=== PATIENT | male | born 2000 | race Caucasian/White ===

== ENCOUNTER 2019-01-20 16:45 | Emergency (ER) | payer OTHER, BC ==
--- NOTE | 2019-01-20 17:14 | EDM.PDOC ---
ED HPI GENERAL MEDICAL PROBLEM - General Chief Complaint: Upper Extremity Injury/Pain Stated Complaint: HAND INJURED ON THE JOB Time Seen by Provider: 01/20/19 17:00 Source of Information: Reports: Patient, RN, RN Notes Reviewed History Limitations: Reports: No Limitations - History of Present Illness INITIAL COMMENTS - FREE TEXT/NARRATIVE: Patient presents to the ED at [facility] for the evaluation of a crush injury to the right hand. The patient states while he was at work, he was cleaning out a grain auger when the hand was crushed by a door on the auger. No previous injury or trauma to the right hand. The patient denies any numbness, tingling, or paresthesia to the right upper extremity. No previous right hand surgeries. Patient has normal ROM of the right hand. Onset: Today Onset Date: 01/20/19 - Related Data Allergies Allergy/AdvReac Type Severity Reaction Status Date / Time No Known Allergies Allergy Verified 09/22/16 16:28 Home Meds: Home Meds . [No Known Home Meds] 01/20/19 [History] Review of Systems - Review of Systems Review Of Systems: See Below Constitutional: Denies: Chills, Fever Respiratory: Denies: Shortness of Breath, Cough Cardiovascular: Denies: Chest Pain, Palpitations Musculoskeletal: Reports: Hand Pain, Joint Pain, Joint Swelling, Muscle Pain, Muscle Stiffness Skin: Reports: Wound (two puncture wounds to the dorsum of the 3rd and 4th digits) Neurological: Reports: No Symptoms ED EXAM, GENERAL - Physical Exam Exam: See Below Exam Limited By: Uncooperative General Appearance: No Apparent Distress Respiratory/Chest: No Respiratory Distress, Lungs Clear, Normal Breath Sounds Cardiovascular: Normal Peripheral Pulses, Regular Rate, Rhythm Peripheral Pulses: 2+: Radial (L), Radial (R) Extremities: Normal Capillary Refill, Joint Swelling, Limited Range of Motion, Other (right hand swelling; adequate ROM but painful to move fingers; no obvious bone deformity) Neurological: Alert, Oriented Skin Exam: Warm, Dry, Intact, Wound/Incision (puncture wound to the dorsum of the 3rd and 4th digits; no evidence of infection; areas are scabbed over) Departure - Departure Time of Disposition: 17:58 Disposition: Home, Self-Care 01 Condition: Good Clinical Impression: Encounter related to worker's compensation claim Injury, crush, hand Qualifiers: Encounter type: initial encounter Laterality: right Qualified Code(s): S67.21XA - Crushing injury of right hand, initial encounter - Discharge Information *PRESCRIPTION DRUG MONITORING PROGRAM REVIEWED*: Not Applicable *COPY OF PRESCRIPTION DRUG MONITORING REPORT IN PATIENT CELIA: Not Applicable Instructions: Crush Injury of the Hand Referrals: Aki Ruffin [employer] OPERATOR [Primary Care Provider] - Forms: ED Department Discharge Additional Instructions: 1. Stay well hydrated and rest 2. Rest, elevate, and ice right hand several times a day 3. Take Advil/Tylenol as needed 4. Keep abrahan wrap on to help with swelling 5. See your PCP as symptoms warrant - Problem List Review Problem List Initiated/Reviewed/Updated: Yes - Assessment/Plan Assessment:: Crush injury, right hand Workers Comp encounter Plan: Xray discussed with patient. No acute fracture or dislocation. Patient will need to rest, elevate, and ice several times a day. Take Advil/Tylenol as needed. ABRAHAN wrap to help compress swelling. See PCP as symptoms warrant.
--- NOTE | 2019-01-20 17:45 | CR ---
[id number] RAD/RAD Fingers Right Exam: RAD Fingers Right Indication:CRUSH INJURY, RIGHT HAND SWELLING, RIGHT MIDDLE AND Comparison: No prior imaging for comparison. Discussion: No significant osseous or soft tissue abnormality. Impression: Negative examination of the hand. Joni Vences MD 01/20/19 0736 Thank you for allowing us to participate in the care of your patient.
== END 2019-01-20 18:10 | disposition home or self-care (01) ==
LOC: VM.ED 16:45
DX: S67.21XA Crushing injury of right hand, initial encounter (principal); S61.232A Puncture wound without foreign body of right middle finger without damage to nail, initial encounter; S61.234A Puncture wound without foreign body of right ring finger without damage to nail, initial encounter; W23.0XXA Caught, crushed, jammed, or pinched between moving objects, initial encounter; Y99.0 Civilian activity done for income or pay
CPT/HCPCS: 73140-RT; 99283-25

== ENCOUNTER 2024-08-16 09:52 | Emergency (ER) | payer BC ==
[2024-08-16] MEDS: Ketorolac 30 MG/ML SDV IM ONE (11:29)
== END 2024-08-16 11:45 | disposition home or self-care (01) ==
LOC: VM.ED 09:52 → SUPCPDRO 09:52 → VM.ED 11:45
DX: S90.32XA Contusion of left foot, initial encounter (principal); F17.210 Nicotine dependence, cigarettes, uncomplicated; X58.XXXA Exposure to other specified factors, initial encounter
CPT/HCPCS: 73630-LT; 96372; 99283; J1885